=== PATIENT | female | born 2000 | race African-American/Black ===

== ENCOUNTER 2019-01-01 12:40 | Outpatient (CLI) | payer OTHER ==
--- NOTE | 2019-01-02 10:18 | Ultrasound Report ---
COMPLETE LEFT BREAST ULTRASOUND HISTORY: 18-year-old with left breast pain. COMPARISON: None. FINDINGS: Complete sonographic evaluation including imaging of the four quadrants and subareolar aspect of the left breast demonstrates no distinct abnormality. Normal fibroglandular structures with no mass, cy st or suspicious shadowing. IMPRESSION: Normal left breast ultrasound. No explanation for pain. Recommend clinical follow-up and routine mammographic screening based on ACS guidelines. BIRADS 1: Negative. Signer Name: Julio C Espinosa MD Signed: 01/02/2019 10:13 AM Workstation Name: [id number]
== END 2019-01-01 12:41 | disposition home or self-care (01) ==
LOC: SPVWC 12:40
PROVIDERS: ATTEND Specialist
DX: N64.4 Mastodynia (principal)